=== PATIENT | male | born 2000 | race Two or more races ===

== ENCOUNTER → 2022-01-26 | Outpatient (CLI) | payer OTHER ==
--- NOTE | 2022-01-26 13:44 | KCIC ---
EXAMINATION: XR CHEST 1V CLINICAL HISTORY: Tuberculosis. EXAM DATE/TIME: 01/26/2022 1:12 PM COMPARISON: None FINDINGS: Lines, Tubes, and Devices: None. Cardiomediastinal Silhouette: Normal heart size. Lungs and Pleura: Moderate left pleural effusion with overlying airspace disease. Right lung clear. Bones and Soft Tissues: No acute osseous abnormality. IMPRESSION: Moderate left pleural effusion with overlying airspace disease. Electronically signed by: Jose Garza DO (01/26/2022 1:41 PM) [id number]
== END ==
LOC: KCIC 13:08
PROVIDERS: ATTEND Internal Medicine Pulmonary Disease
DX: J90 Pleural effusion, not elsewhere classified (principal); Z20.1 Contact with and (suspected) exposure to tuberculosis
CPT/HCPCS: 71045